=== PATIENT | female | born 1935 | race Caucasian/White ===

== ENCOUNTER 2016-10-01 09:25 | Inpatient (IN) | payer OTHER ==
[~2016-10-01] VITALS: Ht 167.6 cm; Wt 87.9 kg
[~2016-10-01 09:25] MED LIST: BENAZEPRIL HCL20 MG PO; CALCIUM500 M4 PO; CARDIZEM CD,CA180 MG PO; CARTIA XT120 MG PO; CELEXA20 MG PO; CLONAZEPAM0.5 MG PO; CO Q-10100 MG PO; COENZYME Q-10200 MG PO; DIGOXIN125 MCG PO; FERROUS SULFAT325 MG PO; KLOR-CON M2020 MEQ PO; LASIX40 MG PO; LEVO-T112 MCG PO; LEVOTHYROXINE100 MCG PO; LOPRESSOR100 M1 PO; MEVACOR20 MG PO; PROMETHAZINE HC25 M1 PO; PROMETHAZINE12.5 M1 PO; TRIAMCINOLONE A15 GM TP; XARELTO15 MG PO; ZOSYN 3.3753.375 GM IV
[2016-10-01 10:46] LABS: HEMATOCRIT 41.6 % (36.0-46.0); MCH 25.7 PG (29.0-34.0); MCHC 33.2 G/DL (30.0-36.0); MCV 77.5 FL (83-99); MEAN PLAT.VOLUME 10.2 uM^3 (9.5-12.4); PLATELET COUNT 510 K/uL (156-360); RBC DIS.WIDTH-CV 21.9 % (11.8-14.6); RBC DIS.WIDTH-SD 57.6 % (39-53); RED BLOOD COUNT 5.37 M/uL (3.80-5.20); WHITE BLOOD COUNT 14.2 K/uL (4.1-10.2)
[2016-10-01 10:56] LABS: CHLORIDE 98 mEq/L (99-109); POTASSIUM 4.9 mEq/L (3.7-5.4); SODIUM 132 mEq/L (136-147)
[2016-10-01 10:57] LABS: GLUCOSE 291 mg/dL (70-99)
[2016-10-01 10:59] LABS: ANION GAP 12 MEQ/L (2-14)
[2016-10-01 11:01] LABS: GFR ESTIMATE (CALCULATED) > 59 mL/min/
[2016-10-01 11:02] LABS: UREA NITROGEN (BUN) 8 mg/dL (9-23)
[2016-10-01 11:07] LABS: EOSINOPHIL (%) 0.1 % (0-5); IMMATURE GRANULOCYTE (%) 0.8 % (0.0-0.7); IMMATURE GRANULOCYTE COUNT 0.1 K/uL; INSTRUMENT ABS NEUTROPHIL CT 11.9 K/uL; LYMPHOCYTE COUNT 1.2 K/uL (1.0-2.8); MONOCYTE (%) 6.7 % (3-12); NEUTROPHIL (%) 83.5 % (45-76); NEUTROPHIL COUNT 11.9 K/uL (1.8-6.4)
[2016-10-01 13:38] LABS: MAGNESIUM 1.7 mg/dL (1.3-2.7)
[2016-10-01 13:46] LABS: PROTHROMBIN TIME 155.9 (9.2-11.2)
[2016-10-01 13:47] LABS: INTER. NORMALIZED RATIO 14.1
[2016-10-01] MEDS ORDERED: LASIX20 MG PO (13:55)
[2016-10-01] MEDS ORDERED: EFFEXOR XR75 MG PO (13:58)
[2016-10-01] MEDS ORDERED: WARFARIN SODIU2.5 MG PO (13:59)
[2016-10-01] MEDS ORDERED: OMEPRAZOLE20 MG PO (14:00)
[2016-10-01] MEDS ORDERED: CLINDAMYCIN HC300 MG PO (14:01)
[2016-10-01] MEDS ORDERED: IMODIUM A-D2 M2 PO (14:02)
[2016-10-01] MEDS ORDERED: PROCHLORPERAZIN10 MG PO (14:04)
[2016-10-01] MEDS ORDERED: DULCOLAX10 MG PR (14:04)
[2016-10-01] MEDS ORDERED: LORAZEPAM0.5 MG PO (14:05)
[2016-10-01] MEDS ORDERED: MORPHINE CON20 MG/M1 PO (14:05)
[2016-10-01] MEDS ORDERED: HYOSCYAMINE0.125 M1 SL (14:06)
[2016-10-01] MEDS ORDERED: HALDOL10 MG/5 ML PO (14:08)
[2016-10-01] MEDS ORDERED: ACETAMINOPHEN650 M4 PR (14:08)
[2016-10-01 17:51] LABS: ADD MIUA? YES; BILIRUBIN NEGATIVE; BLOOD NEGATIVE; GLUCOSE (STRIP) 150; KETONES NEGATIVE; LEUKOCYTES NEGATIVE; NITRITE NEGATIVE; PROTEIN (STRIP) 100; SPECIFIC GRAVITY 1.028 (1.000-1.030); UROBILINOGEN 0.2 MG/DL (0.2-1.0)
[2016-10-01 17:54] LABS: COLOR DK YELLOW ((YELLOW))
[2016-10-01 18:09] LABS: BACTERIA RARE /HPF; EPITHELIAL CELLS RARE /HPF; HYALINE CASTS 0-5 /LPF; MUCUS 2+ /LPF; RED BLOOD CELLS 20-30 /HPF (0-5); WHITE BLOOD CELLS 0-5 /HPF (0-5)
[2016-10-01 20:34] VITALS: BP 126/69
[2016-10-01 20:44] VITALS: BP 126/69
[2016-10-01 23:00] VITALS: BP 149/89
[2016-10-02 05:18] VITALS: BP 122/57
[2016-10-02 08:15] VITALS: BP 139/84
[2016-10-02 08:39] LABS: PTT 42.6 (25-32)
[2016-10-02 08:48] LABS: INTER. NORMALIZED RATIO 3.3; PROTHROMBIN TIME 35.4 (9.2-11.2)
[2016-10-02 09:16] LABS: ANION GAP 7 MEQ/L (2-14); CHLORIDE 100 MEQ/L (99-109); GFR ESTIMATE (CALCULATED) > 59 mL/min/; GLUCOSE 176 mg/dL (70-99); POTASSIUM 4.4 MEQ/L (3.7-5.4); SAMPLE HEMOLYSIS CHECK 0; SAMPLE ICTERIC CHECK 0; SAMPLE LIPEMIA CHECK 0; SODIUM 133 MEQ/L (136-147); UREA NITROGEN (BUN) 8 mg/dL (9-23)
[2016-10-02 09:17] LABS: HEMATOCRIT 42.2 % (36.0-46.0); MCH 25.3 PG (29.0-34.0); MCHC 31.8 G/DL (30.0-36.0); MCV 79.8 FL (83-99); MEAN PLAT.VOLUME 9.9 uM^3 (9.5-12.4); PLATELET COUNT 453 K/uL (156-360); RBC DIS.WIDTH-CV 22.3 % (11.8-14.6); RBC DIS.WIDTH-SD 62.6 % (39-53); RED BLOOD COUNT 5.29 M/uL (3.80-5.20)
[2016-10-02 12:00] VITALS: BP 123/91
[2016-10-02 12:52] LABS: COLOR BROWN ((YELLOW)); GLUCOSE (STRIP) NEGATIVE; KETONES NEGATIVE; LEUKOCYTES TRACE; NITRITE NEGATIVE; PROTEIN (STRIP) 300; SPECIFIC GRAVITY 1.032 (1.000-1.030); UROBILINOGEN 0.2 MG/DL (0.2-1.0)
[2016-10-02 12:53] LABS: ADD MIUA? YES; BILIRUBIN SMALL; BLOOD LARGE
[2016-10-02 13:04] LABS: RED BLOOD CELLS TNTC /HPF (0-5)
[2016-10-02 13:11] LABS: CASTS PRESENT /LPF; EPITHELIAL CELLS 2+ /HPF; MUCUS NONE SEEN /LPF; WHITE CELL CASTS 0-5 /LPF
[2016-10-02 13:30] LABS: WHITE BLOOD CELLS 15-20 /HPF (0-5)
[2016-10-02 13:31] LABS: BACTERIA 3+ /HPF
[2016-10-02 14:45] LABS: INTER. NORMALIZED RATIO 2.6; PROTHROMBIN TIME 26.9 (9.2-11.2)
[2016-10-02 16:49] VITALS: BP 121/84
[2016-10-02 20:00] VITALS: BP 140/83
[2016-10-02 23:31] VITALS: BP 136/68
[2016-10-03 03:30] VITALS: BP 150/82
[2016-10-03 07:59] LABS: INTER. NORMALIZED RATIO 1.9; PROTHROMBIN TIME 20.1 (9.2-11.2); PTT 33.4 (25-32)
[2016-10-03 08:01] VITALS: BP 117/78
[2016-10-03 09:13] LABS: HEMATOCRIT 42.6 % (36.0-46.0); MCH 25.7 PG (29.0-34.0); MCHC 31.9 G/DL (30.0-36.0); MCV 80.4 FL (83-99); MEAN PLAT.VOLUME 10.2 uM^3 (9.5-12.4); PLATELET COUNT 518 K/uL (156-360); RBC DIS.WIDTH-CV 22.4 % (11.8-14.6); RBC DIS.WIDTH-SD 63.7 % (39-53); WHITE BLOOD COUNT 13.3 K/uL (4.1-10.2)
[2016-10-03 09:17] LABS: ANION GAP 8 MEQ/L (2-14); CHLORIDE 103 MEQ/L (99-109); GFR ESTIMATE (CALCULATED) > 59 mL/min/; GLUCOSE 250 mg/dL (70-99); POTASSIUM 4.9 MEQ/L (3.7-5.4); SAMPLE HEMOLYSIS CHECK 0; SAMPLE ICTERIC CHECK 0; SAMPLE LIPEMIA CHECK 0; SODIUM 134 MEQ/L (136-147); UREA NITROGEN (BUN) 12 mg/dL (9-23)
[2016-10-03 13:09] VITALS: BP 121/91
[2016-10-03 17:05] VITALS: BP 139/90
[2016-10-03 21:16] VITALS: BP 130/88
[2016-10-04 00:32] VITALS: BP 131/94
[2016-10-04 05:33] VITALS: BP 132/77
[2016-10-04 07:11] VITALS: BP 119/72
[2016-10-04 09:26] LABS: HEMATOCRIT 43.9 % (36.0-46.0); MCH 25.6 PG (29.0-34.0); MCHC 32.1 G/DL (30.0-36.0); MCV 79.7 FL (83-99); NRBC (%) 0.3 /100 WBC (0-0); PLATELET COUNT 597 K/uL (156-360); RBC DIS.WIDTH-CV 22.9 % (11.8-14.6); RBC DIS.WIDTH-SD 62.5 % (39-53); RED BLOOD COUNT 5.51 M/uL (3.80-5.20); WHITE BLOOD COUNT 11.6 K/uL (4.1-10.2)
[2016-10-04 09:52] LABS: ANION GAP 8 MEQ/L (2-14); CHLORIDE 100 MEQ/L (99-109); GFR ESTIMATE (CALCULATED) > 59 mL/min/; GLUCOSE 180 mg/dL (70-99); SAMPLE HEMOLYSIS CHECK 0; SAMPLE ICTERIC CHECK 0; SAMPLE LIPEMIA CHECK 0; SODIUM 132 MEQ/L (136-147); UREA NITROGEN (BUN) 15 mg/dL (9-23)
[2016-10-04 11:44] VITALS: BP 115/68
[2016-10-04 16:00] VITALS: BP 100/65
[2016-10-04 19:53] LABS: INTER. NORMALIZED RATIO 1.6; PROTHROMBIN TIME 16.5 (9.2-11.2)
[2016-10-04 21:00] VITALS: BP 128/94
[2016-10-05 00:35] VITALS: BP 121/64
[2016-10-05 05:46] VITALS: BP 97/64
[2016-10-05 08:30] VITALS: BP 112/68
[2016-10-05 09:35] LABS: MCH 25.4 PG (29.0-34.0); MCHC 31.9 G/DL (30.0-36.0); MCV 79.6 FL (83-99); MEAN PLAT.VOLUME 9.6 uM^3 (9.5-12.4); NRBC (%) 0.3 /100 WBC (0-0); PLATELET COUNT 531 K/uL (156-360); RBC DIS.WIDTH-CV 23.5 % (11.8-14.6); RBC DIS.WIDTH-SD 62.4 % (39-53); WHITE BLOOD COUNT 9.8 K/uL (4.1-10.2)
[2016-10-05 10:11] LABS: ANION GAP 7 MEQ/L (2-14); CHLORIDE 102 MEQ/L (99-109); GFR ESTIMATE (CALCULATED) 57 mL/min/; GLUCOSE 150 mg/dL (70-99); POTASSIUM 5.2 MEQ/L (3.7-5.4); SAMPLE HEMOLYSIS CHECK 0; SAMPLE ICTERIC CHECK 0; SAMPLE LIPEMIA CHECK 0; SODIUM 134 MEQ/L (136-147); UREA NITROGEN (BUN) 17 mg/dL (9-23)
[2016-10-05 12:18] VITALS: BP 115/75
[2016-10-05 16:01] VITALS: BP 136/74
[2016-10-05 21:30] VITALS: BP 128/79
[2016-10-06] VITALS (7 sets, daily range): BP systolic 113–162; BP diastolic 60–96
[2016-10-06 07:18] LABS: INTER. NORMALIZED RATIO 2.1; PROTHROMBIN TIME 21.6 (9.2-11.2)
[2016-10-06 09:18] LABS: HEMATOCRIT 43.1 % (36.0-46.0); MCH 25.8 PG (29.0-34.0); MCHC 31.8 G/DL (30.0-36.0); MCV 81.2 FL (83-99); MEAN PLAT.VOLUME 9.6 uM^3 (9.5-12.4); NRBC (%) 0.5 /100 WBC (0-0); PLATELET COUNT 570 K/uL (156-360); RBC DIS.WIDTH-CV 23.5 % (11.8-14.6); RBC DIS.WIDTH-SD 65.4 % (39-53); RED BLOOD COUNT 5.31 M/uL (3.80-5.20); WHITE BLOOD COUNT 10.9 K/uL (4.1-10.2)
[2016-10-06 09:42] LABS: ANION GAP 6 MEQ/L (2-14); CHLORIDE 103 MEQ/L (99-109); GFR ESTIMATE (CALCULATED) 51 mL/min/; GLUCOSE 168 mg/dL (70-99); POTASSIUM 5.4 MEQ/L (3.7-5.4); SAMPLE HEMOLYSIS CHECK 0; SAMPLE ICTERIC CHECK 0; SAMPLE LIPEMIA CHECK 0; SODIUM 136 MEQ/L (136-147); UREA NITROGEN (BUN) 16 mg/dL (9-23)
[2016-10-07 05:48] VITALS: BP 97/63
[2016-10-07 08:02] LABS: INTER. NORMALIZED RATIO 2.4; PROTHROMBIN TIME 25.1 (9.2-11.2)
[2016-10-07 08:45] VITALS: BP 131/54
[2016-10-07 11:21] VITALS: BP 127/76
[2016-10-07 19:56] VITALS: BP 134/70
[2016-10-08] VITALS (7 sets, daily range): BP systolic 98–133; BP diastolic 49–93
[2016-10-08 06:57] LABS: BASOPHIL COUNT 0.1 K/uL (0-0.1); EOSINOPHIL (%) 0.8 % (0-5); EOSINOPHIL COUNT 0.1 K/uL (0-0.3); IMMATURE GRANULOCYTE (%) 0.7 % (0.0-0.7); IMMATURE GRANULOCYTE COUNT 0.1 K/uL; INSTRUMENT ABS NEUTROPHIL CT 7.8 K/uL; MCH 25.7 PG (29.0-34.0); MCV 80.2 FL (83-99); MEAN PLAT.VOLUME 9.6 uM^3 (9.5-12.4); MONOCYTE (%) 6.8 % (3-12); MONOCYTE COUNT 0.7 K/uL (0-0.8); NEUTROPHIL (%) 80.8 % (45-76); NEUTROPHIL COUNT 7.8 K/uL (1.8-6.4); NRBC (%) 0.2 /100 WBC (0-0); PLATELET COUNT 459 K/uL (156-360); RBC DIS.WIDTH-CV 23.9 % (11.8-14.6); RBC DIS.WIDTH-SD 65.6 % (39-53); RED BLOOD COUNT 4.99 M/uL (3.80-5.20); WHITE BLOOD COUNT 9.7 K/uL (4.1-10.2)
[2016-10-08 07:04] LABS: INTER. NORMALIZED RATIO 2.6; PROTHROMBIN TIME 27.7 (9.2-11.2)
[2016-10-08 07:22] LABS: ANION GAP 7 MEQ/L (2-14); CHLORIDE 102 MEQ/L (99-109); GFR ESTIMATE (CALCULATED) 57 mL/min/; GLUCOSE 208 mg/dL (70-99); MAGNESIUM 1.6 mg/dl (1.3-2.7); POTASSIUM 4.8 MEQ/L (3.7-5.4); SAMPLE HEMOLYSIS CHECK 0; SAMPLE ICTERIC CHECK 0; SAMPLE LIPEMIA CHECK 0; SODIUM 135 MEQ/L (136-147); UREA NITROGEN (BUN) 16 mg/dL (9-23)
[2016-10-09 04:36] VITALS: BP 119/67
[2016-10-09 07:14] LABS: EOSINOPHIL (%) 0 % (0-5); HEMATOCRIT 40.9 % (36.0-46.0); IMMATURE GRANULOCYTE (%) 0.7 % (0.0-0.7); IMMATURE GRANULOCYTE COUNT 0.1 K/uL; INSTRUMENT ABS NEUTROPHIL CT 7.3 K/uL; LYMPHOCYTE COUNT 0.5 K/uL (1.0-2.8); MCH 25.5 PG (29.0-34.0); MCHC 31.5 G/DL (30.0-36.0); MCV 80.8 FL (83-99); MEAN PLAT.VOLUME 9.6 uM^3 (9.5-12.4); MONOCYTE (%) 3.2 % (3-12); MONOCYTE COUNT 0.3 K/uL (0-0.8); NEUTROPHIL COUNT 7.3 K/uL (1.8-6.4); PLATELET COUNT 384 K/uL (156-360); RBC DIS.WIDTH-CV 23.9 % (11.8-14.6); RBC DIS.WIDTH-SD 67.9 % (39-53); RED BLOOD COUNT 5.06 M/uL (3.80-5.20); WHITE BLOOD COUNT 8.2 K/uL (4.1-10.2)
[2016-10-09 07:33] VITALS: BP 121/92
[2016-10-09 07:36] LABS: INTER. NORMALIZED RATIO 2.9; PROTHROMBIN TIME 30.1 (9.2-11.2)
[2016-10-09 07:38] LABS: ANION GAP 7 MEQ/L (2-14); CHLORIDE 101 MEQ/L (99-109); GFR ESTIMATE (CALCULATED) 51 mL/min/; GLUCOSE 309 mg/dL (70-99); MAGNESIUM 1.7 mg/dl (1.3-2.7); POTASSIUM 5.1 MEQ/L (3.7-5.4); SAMPLE HEMOLYSIS CHECK 0; SAMPLE ICTERIC CHECK 0; SAMPLE LIPEMIA CHECK 0; SODIUM 135 MEQ/L (136-147); UREA NITROGEN (BUN) 19 mg/dL (9-23)
[2016-10-09 12:11] VITALS: BP 118/81
[2016-10-09 12:12] LABS: POINT-OF-CARE USER ID ENVKC36
[2016-10-09 15:41] VITALS: BP 122/82
[2016-10-09 16:21] LABS: POINT-OF-CARE USER ID ENVKC36
[2016-10-09 19:37] VITALS: BP 121/78
[2016-10-09 23:20] VITALS: BP 124/84
[2016-10-10 04:32] VITALS: BP 122/65
[2016-10-10 06:26] LABS: INTER. NORMALIZED RATIO 3.4; PROTHROMBIN TIME 35.5 (9.2-11.2)
[2016-10-10 09:19] VITALS: BP 116/80
[2016-10-10 11:31] VITALS: BP 140/97
[2016-10-10 13:16] LABS: Estimated Average Glucose 235 mg/dL (70-123)
[2016-10-10 13:47] LABS: HEMOGLOBIN A1c (GLYCOHEMOGLOB) 9.8 % HGB (Below 5.7)
[2016-10-10 16:03] VITALS: BP 122/82
[2016-10-10 19:18] VITALS: BP 141/78
[2016-10-10 21:25] LABS: POINT-OF-CARE METER ID UU13113781
[2016-10-10 23:30] VITALS: BP 127/72
[2016-10-11 04:40] VITALS: BP 121/75
[2016-10-11 07:22] LABS: INTER. NORMALIZED RATIO 3.2; PROTHROMBIN TIME 33.7 (9.2-11.2)
[2016-10-11 07:49] LABS: POINT-OF-CARE METER ID UU14174216
[2016-10-11 08:26] VITALS: BP 116/72
[2016-10-11 11:21] LABS: POINT-OF-CARE METER ID UU14174216
[2016-10-11 12:15] VITALS: BP 132/92
[2016-10-11] MEDS ORDERED: PREDNISONE10 MG PO (13:48)
[2016-10-11] MEDS ORDERED: CARDIZEM CD,CA240 MG PO (13:48)
[2016-10-11] MEDS ORDERED: LINEZOLID600 MG PO (13:48)
[2016-10-11] MEDS ORDERED: LEVEMIR100 UNIT/2 SC (13:48)
[2016-10-11] MEDS ORDERED: NOVOLOG PE100 UNITS/ SC (13:48)
== END 2016-10-11 18:50 | DRG 919 ==
LOC: EME 09:25 → EDOF 12:54 → 4EAST 12:54
PROVIDERS: Emergency Medicine; Hospitalist; Internal Medicine; Physician Assistant; Radiology Diagnostic Radiology; Student in an Organized Health Care Education/Training Program
PROC: 0W9930Z Drainage of Right Pleural Cavity with Drainage Device, Percutaneous Approach (ICD-10-PCS; principal; 2016-10-03)
PROC: 0W9B3ZZ Drainage of Left Pleural Cavity, Percutaneous Approach (ICD-10-PCS; 2016-10-07)
PROC: 2W54XYZ Removal of Other Device on Chest Wall (ICD-10-PCS; 2016-10-07)
DX: T85.79XA Infection and inflammatory reaction due to other internal prosthetic devices, implants and grafts, initial encounter (principal); A41.9 Sepsis, unspecified organism; J86.9 Pyothorax without fistula; E87.1 Hypo-osmolality and hyponatremia; I50.22 Chronic systolic (congestive) heart failure; J90 Pleural effusion, not elsewhere classified; I48.1 Persistent atrial fibrillation; I11.0 Hypertensive heart disease with heart failure; B95.62 Methicillin resistant Staphylococcus aureus infection as the cause of diseases classified elsewhere; J18.9 Pneumonia, unspecified organism; R82.90 Unspecified abnormal findings in urine; K52.1 Toxic gastroenteritis and colitis; T36.95XA Adverse effect of unspecified systemic antibiotic, initial encounter; Z86.711 Personal history of pulmonary embolism; Z79.01 Long term (current) use of anticoagulants; E03.9 Hypothyroidism, unspecified; E11.9 Type 2 diabetes mellitus without complications; I50.32 Chronic diastolic (congestive) heart failure; Z85.850 Personal history of malignant neoplasm of thyroid; R62.7 Adult failure to thrive; F03.90 Unspecified dementia, unspecified severity, without behavioral disturbance, psychotic disturbance, mood disturbance, and anxiety; H61.21 Impacted cerumen, right ear
CPT/HCPCS: 71010; 71020; 71250; 74176; 80048; 80202; 81003; 82948; 83036; 83605; 83735; 85025; 85027; 85610; 85730; 87040; 87070; 87075; 87086; 87177; 87205; 87493; 88108; 88305; 93005; 94640; 94799; 97530 GO; 97530 GP; 99202; 99281; 99285; C1729; J0692; J1815; J1940; J2270; J2543; J3010; J3370; J7030; J7050; J7512